=== PATIENT | female | born 1995 | race Asian ===

== ENCOUNTER 2019-07-15 09:51 | Emergency (ER) | payer OTHER ==
[~2019-07-15] VITALS: Ht 175.3 cm; Wt 121.6 kg
[2019-07-15 11:00] VITALS: BP 141/85; TEMP 97.5
== END 2019-07-15 11:00 | disposition home or self-care (01) ==
LOC: ED 09:51
DX: F41.9 Anxiety disorder, unspecified (principal); R68.84 Jaw pain
CPT/HCPCS: 99281; 99282